=== PATIENT | male | born 1995 | race Caucasian/White ===

== ENCOUNTER 2021-05-01 07:44 | Day surgery (SDC) | payer OTHER ==
[~2021-05-01] VITALS: Ht 167.6 cm; Wt 68.5 kg
[~2021-05-01 07:44] MED LIST: BUPIVACAINE HCL 0.5% 30 ML VIAL As Ordered ONE; LIDOCAINE 1% MDV 20ML VIAL SQ PRN; LR 1,000 ML IV ONE
[2021-05-01] MEDS ORDERED: fentaNYL 100 MCG/2 ML INJECTION (J3010) As Ordered ONE (09:23)
[2021-05-01] MEDS ORDERED: MIDAZOLAM INJ 2MG/2ML VIAL (J2250 PER 1MG) As Ordered ONE (09:23)
[2021-05-01] MEDS ORDERED: CEPH250REC PO (09:55)
[2021-05-01] MEDS ORDERED: HYDR1SOL PO (09:55)
[2021-05-01] MEDS ORDERED: IBUP1TAB7 PO (09:55)
[2021-05-01] MEDS ORDERED: propofoL 200 MG/20 ML VIAL As Ordered ONE (09:56)
[2021-05-01] MEDS ORDERED: dexameTHASONE 4 MG/ML 1ML VIAL (J1100 PER 1MG) As Ordered ONE (09:56)
[2021-05-01] MEDS ORDERED: LIDOCAINE 2% 100MG/5ML SDV (FOR ANES.) As Ordered ONE (09:57)
[2021-05-01] MEDS ORDERED: ROCURONIUM BROMIDE 50 MG/5 ML VIAL As Ordered ONE (09:58)
[2021-05-01] MEDS ORDERED: ONDANSETRON 4MG/2ML VIAL As Ordered ONE (10:15)
[2021-05-01] MEDS ORDERED: SUGAMMADEX SODIUM 500 MG/5 ML VIAL (BRIDION) As Ordered ONE (10:15)
[2021-05-01] MEDS ORDERED: METOCLOPRAMIDE INJ 10MG/2ML VIAL (J2765 PER 1) As Ordered ONE (10:16)
[2021-05-01] MEDS ORDERED: ACETAMINOPHEN 1000MG 100ML IV BTL (OFIRMEV) (J0131 PER 10MG) As Ordered ONE (10:16)
[2021-05-01] MEDS ORDERED: LR 1,000 ML IV SCH (11:20)
[2021-05-01] MEDS ORDERED: METOCLOPRAMIDE INJ 10MG/2ML VIAL (J2765 PER 1) IV PRN (11:20)
[2021-05-01] MEDS ORDERED: ONDANSETRON 4MG/2ML VIAL IV PRN (11:20)
[2021-05-01] MEDS ORDERED: PERCOCET 5MG/325MG TAB PO PRN ×2 (11:20→11:25)
[2021-05-01] MEDS ORDERED: fentaNYL 100 MCG/2 ML INJECTION (J3010) IV PRN (11:20)
[2021-05-01 12:15] VITALS: BP 140/89
== END 2021-05-01 12:45 | disposition home or self-care (01) ==
LOC: M SDC 07:44
PROVIDERS: ATTEND Specialist
DX: J35.1 Hypertrophy of tonsils (principal); Z88.2 Allergy status to sulfonamides
CPT/HCPCS: 42826; 88302; J0131; J1100; J2250; J2405; J2765; J3010

== ENCOUNTER 2021-05-04 23:08 | Emergency (ER) | payer OTHER ==
[~2021-05-04] VITALS: Ht 167.6 cm; Wt 62.5 kg
[~2021-05-04 23:08] MED LIST changes: -BUPIVACAINE HCL 0.5% 30 ML VIAL As Ordered ONE; +CEPH250REC PO; +HYDR1SOL PO; +IBUP1TAB7 PO; -LIDOCAINE 1% MDV 20ML VIAL SQ PRN; -LR 1,000 ML IV ONE
[2021-05-05 03:30] VITALS: BP 139/79
== END 2021-05-05 03:32 | disposition home or self-care (01) ==
LOC: M ED 23:08
DX: J95.830 Postprocedural hemorrhage of a respiratory system organ or structure following a respiratory system procedure (principal); Z88.2 Allergy status to sulfonamides

== ENCOUNTER 2021-05-12 23:17 | Inpatient (IN) | payer OTHER ==
[~2021-05-12] VITALS: Ht 172.7 cm; Wt 67.6 kg
[2021-05-13 01:17] LABS: BASO # 0.1 10^3/uL (0.0-0.2); BASO % 0.4 % (0.0-1.0); EOS # 0.2 10^3/uL (0.0-0.5); EOS % 0.9 % (0.0-3.0); HEMATOCRIT 40.8 % (42.0-52.0); HEMOGLOBIN 14.2 g/dl (13.5-17.5); LYMPH # 3.2 10^3/uL (1.5-5.0); LYMPH % 18.6 % (24.0-44.0); MEAN CORPUSCULAR HEMOGLOBIN 33.4 pg (27.0-33.0); MEAN CORPUSCULAR HGB CONC 34.8 g/dl (32.0-36.5); MONO # 1.4 10^3/uL (0.0-0.8); MONO % 8.2 % (2.0-8.0); NEUTROPHILS # 12.1 10^3/uL (1.5-8.5); NEUTROPHILS % 71.5 % (36.0-66.0); PLATELET COUNT, AUTOMATED 285 10^3/uL (150-450); RED BLOOD COUNT 4.25 10^6/uL (4.30-6.10)
[2021-05-13 01:28] LABS: INR 1.07; PROTHROMBIN TIME 14.1 SECONDS (12.5-14.3)
[2021-05-13] MEDS ORDERED: ONDANSETRON 4MG/2ML VIAL IV ONE (01:30)
[2021-05-13 01:52] LABS: ALBUMIN 3.9 GM/DL (3.2-5.2); ALT/SGPT 19 U/L (12-78); BILIRUBIN,DIRECT 0.1 MG/DL (0.0-0.2); BILIRUBIN,TOTAL 0.5 MG/DL (0.2-1.0); BLOOD UREA NITROGEN 22 MG/DL (7-18); CALCIUM LEVEL 8.4 MG/DL (8.5-10.1); CARBON DIOXIDE LEVEL 28 MEQ/L (21-32); CHLORIDE LEVEL 105 MEQ/L (98-107); CREATININE FOR GFR 0.94 MG/DL (0.70-1.30); GLOMERULAR FILTRATION RATE > 60.0 (>60); GLUCOSE, FASTING 105 MG/DL (70-100); POTASSIUM SERUM 3.7 MEQ/L (3.5-5.1); SODIUM LEVEL 141 MEQ/L (136-145); TOTAL PROTEIN 6.6 GM/DL (6.4-8.2)
[2021-05-13] MEDS ORDERED: LR 1,000 ML IV ONE (03:10)
[2021-05-13] MEDS ORDERED: dexameTHASONE 20MG/5ML VIAL (J1100 PER 1MG) IV ONE (04:00)
[2021-05-13] MEDS ORDERED: fentaNYL 100 MCG/2 ML INJECTION (J3010) As Ordered ONE (04:15)
[2021-05-13] MEDS ORDERED: MIDAZOLAM INJ 2MG/2ML VIAL (J2250 PER 1MG) As Ordered ONE (04:16)
[2021-05-13] MEDS ORDERED: ROCURONIUM BROMIDE 50 MG/5 ML VIAL As Ordered ONE (04:19)
[2021-05-13] MEDS ORDERED: propofoL 200 MG/20 ML VIAL As Ordered ONE (04:19)
[2021-05-13] MEDS ORDERED: LIDOCAINE 2% 100MG/5ML SDV (FOR ANES.) As Ordered ONE (04:20)
[2021-05-13] MEDS ORDERED: dexameTHASONE 4 MG/ML 1ML VIAL (J1100 PER 1MG) As Ordered ONE (04:20)
[2021-05-13 04:34] LABS: RSV AMPLIFICATION NEGATIVE (NEGATIVE)
[2021-05-13] MEDS ORDERED: LIDOCAINE W/EPINEPHRINE 1% 20ML VIAL As Ordered ONE (04:42)
[2021-05-13] MEDS ORDERED: SUGAMMADEX SODIUM 500 MG/5 ML VIAL (BRIDION) As Ordered ONE (04:43)
[2021-05-13] MEDS ORDERED: METOCLOPRAMIDE INJ 10MG/2ML VIAL (J2765 PER 1) As Ordered ONE (04:44)
[2021-05-13] MEDS ORDERED: ONDANSETRON 4MG/2ML VIAL As Ordered ONE (04:44)
[2021-05-13] MEDS ORDERED: ESMOLOL INJ 100MG/10ML VIAL As Ordered ONE (04:49)
[2021-05-13] MEDS ORDERED: EPINEPHrine 1MG/ML INJ 30ML MD-VIAL As Ordered ONE (05:03)
[2021-05-13] MEDS ORDERED: LR 1,000 ML IV SCH ×2 (05:15→05:55)
[2021-05-13] MEDS ORDERED: METOCLOPRAMIDE INJ 10MG/2ML VIAL (J2765 PER 1) IV PRN (05:15)
[2021-05-13] MEDS ORDERED: ONDANSETRON 4MG/2ML VIAL IV PRN (05:15)
[2021-05-13] MEDS ORDERED: fentaNYL 100 MCG/2 ML INJECTION (J3010) IV PRN (05:15)
[2021-05-13] MEDS ORDERED: HYDROcodone/APAP LIQUID 7.5-325MG 15ML UDC (LORTAB ELIXIR) PO PRN (05:55)
[2021-05-13] MEDS ORDERED: [UNRECOGNIZED DRUG - REMARK] XX SCH (06:00)
[2021-05-13 06:15] VITALS: BP 128/76
[2021-05-13 06:45] VITALS: BP 126/75
[2021-05-13 07:45] VITALS: BP 117/74
[2021-05-13 08:45] VITALS: BP 111/60
--- NOTE | 2021-05-13 09:07 | RO ---
OPERATIVE NOTE DATE OF OPERATION: 05/13/2021 PREOPERATIVE DIAGNOSIS: Post-tonsillectomy hemorrhage. POSTOPERATIVE DIAGNOSIS: Post-tonsillectomy hemorrhage. PROCEDURE PERFORMED: Control of post-tonsillectomy hemorrhage. SURGEON: Joshua Robles MD DESKTOP SPECIALIST: ANESTHESIA: GA INTRAOPERATIVE FINDINGS: Fresh blood and clots noted over the right tonsil fossa. Active bleeder found and cauterized from the midportion of the right tonsil fossa. CLINICAL PREAMBLE: This 26-year-old man underwent tonsillectomy for chronic tonsillitis approximately two weeks ago. He did develop postop bleeding about a week after the surgery. The bleeding resolved. However, on May 12, 2021, two weeks after the surgery, the patient started noticing fresh blood and active bleeding from the oral cavity. In the evening about 8 o'clock, he presented to the emergency department about 1 o'clock in the morning on May 13, 2021 due to persistent bleeding from the tonsillar fossa. I was asked to see the patient for management of the post-tonsillectomy bleed. Examination revealed fresh blood in the oral cavity with a clot in the mid-fossa of the right tonsil. Management options including controlling the post-tonsillectomy hemorrhage in the OR have been discussed with the patient. He understood and consented to the procedure. OR NARRATION: The patient was brought up from the emergency department on an urgent basis. He was brought to the operating room in stable condition. In supine position on the operating table, the patient received general anesthesia followed by orotracheal intubation without incident. The patient was prepped and draped in the usual fashion for the procedure. The [place]ur[place]Issa mouth gag was inserted and suspended. Inspection of the oral cavity and oropharynx revealed a large clot over the right tonsil fossa. The left tonsil fossa was clear. Using the suction electrocautery set at 20 willett for coagulation, the blood clot was carefully suctioned away from the right tonsil fossa. An oozer was noted from the midportion of the right tonsil. This was successfully controlled using the suction electrocautery. The stomach was then suctioned with an orogastric tube. Approximately 150 mL of gastric contents with old clots was suctioned out. The mouth gag was released and resuspended. Complete hemostasis was observed by the end of the case. Sponge and instrument counts were correct. Estimated blood loss was approximately 5 mL. General anesthesia was reversed and the patient was extubated and brought to the recovery room in stable condition. RON
[2021-05-13 09:45] VITALS: BP 111/60
[2021-05-13 10:45] VITALS: BP 106/58
== END 2021-05-13 13:55 | disposition home or self-care (01) | DRG 909 ==
LOC: M ED 23:17 → M ICU 05-13 05:09 → M ED INP 05-13 05:09 → UNDOADMIN 05-13 05:09 → M MS5PR 05-13 06:15
PROVIDERS: ADMIT Otolaryngology; ATTEND Otolaryngology
PROC: 0W3Q8ZZ Control Bleeding in Respiratory Tract, Via Natural or Artificial Opening Endoscopic (ICD-10-PCS; principal; 2021-05-13 03:49)
DX: J95.830 Postprocedural hemorrhage of a respiratory system organ or structure following a respiratory system procedure (principal); Y83.6 Removal of other organ (partial) (total) as the cause of abnormal reaction of the patient, or of later complication, without mention of misadventure at the time of the procedure